=== PATIENT | male | born 1985 | race Caucasian/White ===

== ENCOUNTER 2022-05-12 11:37 | Emergency (ER) | payer MEDICAID ==
[2022-05-12 11:46] VITALS: BP 148/78
[2022-05-12] MEDS ORDERED: HYDROcod/ACETAM 5/325 MG TABLET PO STA (13:15)
[2022-05-12] MEDS ORDERED: IBUPROFEN 600 MG TABLET PO STA (13:15)
--- NOTE | 2022-05-12 13:17 | ED Physician Documentation ---
PD HPI UPPER EXT INJURY - Stated complaint Stated Complaint: R HAND THUMB BROKEN - Chief complaint Chief Complaint: Trauma Ext - History obtained from History obtained from: Patient - History of Present Illness Location: Right, Finger (thumb) Where injury occurred: Work Timing - onset: Today Timing - details: Abrupt onset (crushed between firm and heavy object, crushing thumb. Significant pain right away, still hurting while here.) Review of Systems Skin: denies: Abrasion (s), Laceration (s) Neurologic: denies: Focal weakness, Numbness PD PAST MEDICAL HISTORY - Past Medical History Past Medical History: Yes - Present Medications Home Medications: Ambulatory Orders Medication Instructions Recorded Confirmed HYDROcod/ACETAM 5/325 [E[place] 5/325] 1 ea PO Q6H PRN #10 tablet 05/12/22 - Allergies Allergies/Adverse Reactions: Allergies Allergy/AdvReac Type Severity Reaction Status Date / Time codeine Allergy Rash Verified 05/12/22 11:46 metformin Allergy Unknown Verified 05/12/22 11:46 Penicillins Allergy Rash Verified 05/12/22 11:46 PD ED PE NORMAL - Vitals Vital signs reviewed: Yes - General General: Alert and oriented X 3, Well developed/nourished, Other (appears in pain due to thumb, with guarded ROM. Mild edema noted. ) - Derm Derm: Normal color, Warm and dry, No rash - Extremities Extremities: No tenderness to palpate, Other (good color and cap refill fingers/cap refill. hurts for movement so limited stress testing but UCL seems more painful than benefit rigth now. ) - Neuro Neuro: No motor deficit, No sensory deficit Results - Vitals Vitals: Oxygen O2 Source Room air - Rads (name of study) thumb xray Radiology: Prelim report reviewed (no fractures), See rad report PD MEDICAL DECISION MAKING - ED course Complexity details: reviewed results (No fractures identified on the x-ray. No subungual hematoma. Good capillary refill and color at the tip.), considered differential, d/w patient Departure - Departure Disposition: 01 Home, Self Care Clinical Impression: Crushing injury of thumb, right Qualifiers: Encounter type: initial encounter Qualified Code(s): S67.01XA - Crushing injury of right thumb, initial encounter Condition: Stable Record reviewed to determine appropriate education?: Yes Instructions: ED Crush Injury Finger No Fx Prescriptions: HYDROcod/ACETAM 5/325 [Elsinore 5/325] 1 ea PO Q6H PRN #10 tablet PRN Reason: Pain Comments: I do not see any fractures on your x-ray. This will still hurt though from the crush injury. Use the splint for the thumb to help with comfort over the next s everal days. I would anticipate improvement over the next several days and resolved by 4 to 5 days. Anti-inflammatory such as ibuprofen or naproxen 2-3 times daily. Add Tylenol every 4-6 hours if needed for pain. Add hydrocodone if needed for worse pain. I prescribed a small amount to your preferred pharmacy. Recheck if not improved as noted above. My narcotic instructions I am prescribing a short course of narcotic pain medication for you. These are potentially dangerous and addictive medications that should be used carefully. These medications may constipate you. Take an cykk-nvu-mgaxhlo stool softener such as docusate twice daily with plenty of water while taking these medications. If you go 24 hours without a bowel movement, take amuk-zlw-evxgmal MiraLAX, per package instructions. Do not drink or drive while taking these medications. If you received narcotic or sedating medications while in the emergency department do not drive for 24 hours. Store this medication in a safe, secure place and out of reach of children. It is a violation of federal law to give or sell this medication to another person or to use in a manner other than prescribed. The ED will not refill narcotic prescriptions, including prescriptions lost or stolen. You can dispose of unwanted medications at the [facility]'s office or at several pharmacies such as [facility]. Forms: Activity restrictions Discharge Date/Time: 05/12/22 13:49
--- NOTE | 2022-05-13 09:23 | XRAY Report ---
PROCEDURE: Finger(s) RT INDICATIONS: Trauma TECHNIQUE: AP hand, 2 views of the first finger(s) acquired. COMPARISON: None FINDINGS: Bones: No fractures or dislocations. No suspicious bony lesions. Soft tissues: No suspicious soft tissue calcifications. IMPRESSION: Unremarkable right thumb radiographs Reviewed by: Eugenio Cervantes MD on 05/13/2022 8:22 AM AKTA Approved by: Eugenio Cervantes MD on 05/13/2022 8:22 AM AKDT Station ID: [id number]
== END 2022-05-12 13:49 | disposition home or self-care (01) ==
LOC: ED 11:37
DX: S67.01XA Crushing injury of right thumb, initial encounter (principal); W23.0XXA Caught, crushed, jammed, or pinched between moving objects, initial encounter; Y99.0 Civilian activity done for income or pay
CPT/HCPCS: 73140; 99283; A9270